=== PATIENT | female | born 1950 | race Caucasian/White ===

== ENCOUNTER 2016-09-30 06:55 | Day surgery (SDC) | payer BC ==
[2016-09-30 07:36] VITALS: BMI 25.0
[2016-09-30 08:36] VITALS: TEMP 97.8
[2016-09-30 09:22] VITALS: BP 102/58; PULSE 66
== END 2016-09-30 09:22 | disposition home or self-care (01) ==
LOC: JASU-ENDO 06:55
PROVIDERS: ATTEND Internal Medicine Gastroenterology
PROC: 0DJD8ZZ Inspection of Lower Intestinal Tract, Via Natural or Artificial Opening Endoscopic (ICD-10-PCS; principal; 2016-09-30 08:00)
DX: Z86.010 Personal history of colon polyps (principal); Z80.0 Family history of malignant neoplasm of digestive organs; K57.30 Diverticulosis of large intestine without perforation or abscess without bleeding

== ENCOUNTER 2017-06-10 09:11 | Emergency (ER) | payer BC, OTHER ==
[2017-06-10 09:43] VITALS: BP 130/82; PULSE 80; TEMP 98.6; BMI 25.0
--- NOTE | 2017-06-10 10:05 | PDOC ---
History of Present Illness - General Chief Complaint: Cold Symptoms Stated Complaint: WANTS A FLU SWAB Time Seen by Provider: 06/10/17 09:28 - History of Present Illness Initial Comments: 06/10/17 11:29 Complaint: Cough History of present illness: Patient complains of cough for 2 days with small amount of clear sputum. Also low-grade fever and body aches Review of systems: No nausea, vomiting, diarrhea, abdominal pain, chest pain, shortness of breath, visual or focal neurologic symptoms, unsteadiness of gait. Minor nasal congestion is present but no earache or sore throat. Past medical history: High blood pressure, tinnitus, recurrent sinusitis Social/family history reviewed and noncontributory Physical exam: Alert and oriented well-developed well-nourished no acute distress cheerful and cooperative. There is no tachypnea or dyspnea. Afebrile, vital signs normal HEENT: PERRLA, minor nasal congestion, no discharge. Ears and throat clear Neck supple without bruit mass or nodes Chest clear with full breath sounds throughout bilaterally. No wheezes rales or rhonchi CV S1 and S2 distant without murmur or gallop pulses full and symmetric no JVD or edema no bruits Abdomen soft nontender without mass or organomegaly Skin clear, no rash, adequate turgor and wet mucous membranes Extremities no CCE Neurological intact Impression: Mild viral URI with cough versus viral bronchitis. No respiratory compromise. Patient does not appear toxic Plan: Symptomatic treatment, rest fluids and Tylenol, recheck immediately if high fever or shortness of breath, chest pain. Otherwise see primary care physician in 2 or 3 days for follow-up. Fully ambulatory and in no distress upon discharge with her to follow-up as recommended Past History - Past Medical History Allergies/Adverse Reactions: Allergies Allergy/AdvReac Type Severity Reaction Status Date / Time Penicillins Allergy Verified 06/10/17 09:12 Sulfa (Sulfonamide Allergy Verified 06/10/17 09:12 Antibiotics) Home Medications: Ambulatory Orders Amlodipine Besylate [Norvasc -] 5 mg PO DAILY 08/23/14 Cholecalciferol (Vitamin D3) [Vitamin D3] 1,000 unit PO DAILY 08/23/14 Clonidine HCl 0.1 mg PO HS 08/23/14 Olmesartan Medoxomil [Benicar -] 40 mg PO DAILY 08/23/14 Pantoprazole Sodium [Protonix] 40 mg PO DAILY 08/23/14 Aspirin [ASA -] 81 mg PO DAILY 09/29/16 Calcium Carbonate [Tums] 200 mg PO BID 09/29/16 Fexofenadine HCl [Marlyn Allergy] 30 mg PO DAILY 09/29/16 Multivitamins [Multivit ([facility])] 1 tab PO DAILY 09/29/16 Guaifenesin AC [Robitussin-AC] 1 - 2 tsp PO Q4HWA PRN #120 ml MDD 8 06/10/17 Anemia: No Asthma: No Cancer: No Cardiac Disorders: No CVA: No COPD: No CHF: No Dementia: No Diabetes: No GI Disorders: Yes (GERD,IBS,REDUNDANT TORTUOUS COLON,GASTRIC FUNDIC POLYPS, ESOPHAGEAL SPASM) Disorders: No HTN: Yes Hypercholesterolemia: No Liver Disease: No Seizures: No Thyroid Disease: No - Surgical History Abdominal Surgery: Yes (UMBILICAL HERNIORRAPHY, LIH) Cardiac Surgery: No Lung Surgery: No Neurologic Surgery: No Orthopedic Surgery: Yes (LEFT LEG FRACTURE PLATE AND SCREWS) - Suicide/Smoking/Psychosocial Hx Smoking History: Never smoked Have you smoked in the past 12 months: No Information on smoking cessation initiated: No Hx Alcohol Use: No Drug/Substance Use Hx: No Substance Use Type: None Hx Substance Use Treatment: No *Physical Exam - Vital Signs Last Vital Signs Temp Pulse Resp BP Pulse Ox 98.6 F 80 20 130/82 100 06/10/17 09:12 06/10/17 09:12 06/10/17 09:12 06/10/17 09:12 06/10/17 09:12 *DC/Admit/Observation/Transfer Diagnosis at time of Disposition: Viral URI with cough - Discharge Dispostion Disposition: HOME Condition at time of disposition: Stable Admit: No - Prescriptions Prescriptions: Guaifenesin AC [Robitussin-AC] 1 - 2 tsp PO Q4HWA PRN #120 ml MDD 8 PRN Reason: Cough - Referrals - Patient Instructions Printed Discharge Instructions: DI for Viral Upper Respiratory Infection -- Adult Additional Instructions: Rest, fluids, Tylenol, ibuprofen, Advil, Motrin, or Aleve for fever or body aches Return to ER if there is high fever above 101 or chest pain, difficulty breathing Otherwise follow-up with primary physician 2-3 days. - Post Discharge Activity
== END 2017-06-10 10:40 | disposition home or self-care (01) ==
LOC: FER 09:11
DX: J06.9 Acute upper respiratory infection, unspecified (principal); R05 Cough; B97.89 Other viral agents as the cause of diseases classified elsewhere; I10 Essential (primary) hypertension; K21.9 Gastro-esophageal reflux disease without esophagitis
CPT/HCPCS: 99282-25